=== PATIENT | male | born 1955 | race African-American/Black ===

== ENCOUNTER 2023-07-05 06:25 | Emergency (ER) | payer MEDICAID ==
[~2023-07-05] VITALS: Ht 170.2 cm; Wt 100.0 kg
[2023-07-05 06:31] VITALS: BP 174/102; RESP 14; TEMP 98; O2SAT 96
[2023-07-05 06:32] VITALS: PULSE 77
== END 2023-07-05 09:18 | disposition left against medical advice (07) ==
LOC: ER 06:25
DX: Z53.21 Procedure and treatment not carried out due to patient leaving prior to being seen by health care provider (principal); I49.9 Cardiac arrhythmia, unspecified
CPT/HCPCS: 93005; 99281; Z7610 ×2